=== PATIENT | male | born 2000 | race Two or more races ===

== ENCOUNTER 2021-01-31 11:26 | Emergency (ER) | payer OTHER ==
[~2021-01-31] VITALS: Ht 170.2 cm; Wt 77.1 kg
[2021-01-31 11:41] VITALS: BP 129/80
[2021-01-31] MEDS ORDERED: LIDOCAINE 1%-EPI 1:100,000 20 ML VIAL ONE (11:45)
--- NOTE | 2021-01-31 11:48 | NUR ---
AT BEDSIDE FOR EVAL.
[2021-01-31] MEDS ORDERED: CEPH500C2 PO (11:59)
[2021-01-31] MEDS ORDERED: SULF1TAB48 PO (11:59)
--- NOTE | 2021-01-31 12:06 | NUR ---
I AND D DONE BY .
--- NOTE | 2021-01-31 12:17 | NUR ---
Patient discharged to home in stable condition. Written and verbal after care instructions given. Patient verbalizes understanding of instruction.
== END 2021-01-31 12:19 | disposition home or self-care (01) ==
LOC: ER 11:32
DX: L02.416 Cutaneous abscess of left lower limb (principal)
CPT/HCPCS: 10060; 99283; A6403; A6407; J3490

== ENCOUNTER 2021-02-28 13:02 | Emergency (ER) | payer OTHER ==
[~2021-02-28] VITALS: Ht 167.6 cm; Wt 77.1 kg
[~2021-02-28 13:02] MED LIST: CEPH500C2 PO; SULF1TAB48 PO
[2021-02-28 13:23] VITALS: BP 144/77
--- NOTE | 2021-02-28 13:48 | NUR ---
PATIENT PROVIDED WITH WARM BLANKETS FOR COMFORT.
--- NOTE | 2021-02-28 14:13 | NUR ---
TAKEN TO CT
[2021-02-28] MEDS ORDERED: ACETAMINOPHEN ES 500 MG TABLET ONE (14:14)
[2021-02-28] MEDS ORDERED: IBUPROFEN 600 MG TABLET ONE (14:15)
[2021-02-28] MEDS ORDERED: IBUPROFEN 600 MG TABLET PO ONE (14:30)
[2021-02-28] MEDS ORDERED: ACETAMINOPHEN ES 500 MG TABLET PO ONE (14:30)
[2021-02-28] MEDS ORDERED: ONDANSETRON 4 MG TAB.RAPDIS SL ONE (14:30)
[2021-02-28] MEDS ORDERED: ONDANSETRON 4 MG TAB.RAPDIS ONE (14:39)
[2021-02-28] MEDS ORDERED: IBUP-1957 PO (15:01)
[2021-02-28] MEDS ORDERED: ONDA4TAB5 PO (15:01)
--- NOTE | 2021-02-28 15:15 | NUR ---
No acute changes/NAD. Patient discharged to home in stable condition. Written and verbal after care instructions given. Patient verbalizes understanding of instruction. Ambulatory
== END 2021-02-28 15:56 | disposition home or self-care (01) ==
LOC: ER 13:02
DX: S00.03XA Contusion of scalp, initial encounter (principal); S10.83XA Contusion of other specified part of neck, initial encounter; Y00.XXXA Assault by blunt object, initial encounter; Y93.89 Activity, other specified; Y92.89 Other specified places as the place of occurrence of the external cause; Y99.8 Other external cause status
CPT/HCPCS: 70450; 72125; 99285; Q0162

== ENCOUNTER → 2023-03-15 | Emergency (ER) | payer OTHER ==
[~2023-03-15] VITALS: Ht 167.6 cm; Wt 72.6 kg
[~2023-03-15] MED LIST changes: +ACETAMINOPHEN ES 500 MG TABLET ONE; +ACETAMINOPHEN ES 500 MG TABLET PO ONE; +CYCL5TAB PO; +IBUP-1957 PO; +ONDA4TAB5 PO
[2023-03-15 16:26] VITALS: TEMP 98.4
[2023-03-15 18:22] VITALS: BP 124/70; O2SAT 100
== END | disposition home or self-care (01) ==
LOC: ER 16:33
DX: R07.89 Other chest pain (principal)
CPT/HCPCS: 71100-TC